=== PATIENT | female | born 1975 | race Caucasian/White ===

== ENCOUNTER 2017-06-18 16:47 | Observation (INO) ==
[2017-06-18] MEDS ORDERED: ATIVAN ONE ×2 (16:48)
[2017-06-18] MEDS ORDERED: STERILE WATER INJ. ONE ×2 (16:49)
[2017-06-18] MEDS ORDERED: GEODON ONE ×2 (16:49)
[2017-06-18] MEDS ORDERED: ATIVAN IM ONE ×2 (16:55→20:07)
[2017-06-18] MEDS ORDERED: GEODON IM ONE (16:55)
[2017-06-18] MEDS ORDERED: STERILE WATER INJ. INJ ONE (16:55)
[2017-06-18 19:00] LABS: BASO% 0.2 % (0.0-0.8); EOS# 0.06 X1000 (0.0-0.7); EOS% 0.3 % (0.0-10.0); HEMATOCRIT 43.2 % (37.0-47.0); HEMOGLOBIN 14.1 g/dL (12.0-16.0); IMM GRAN# 0.15 X1000 (0.0-0.04); IMM GRAN% 0.7 % (0.0-0.5); LYMPH# 2.06 X1000 (1.2-3.4); LYMPH% 9.5 % (20.5-51.1); MANUAL DIFF NEEDED? NO; MCH 29.1 PG (27-31); MCHC 32.6 g/dL (33-37); MCV 89.1 FL (81-99); MONO# 0.93 X1000 (0.11-0.59); MONO% 4.3 % (1.7-9.3); MPV 10.6 FL (7.4-10.4); PLT 397 X1000 (130-400); RBC 4.85 XMIL (4.2-5.4)
--- NOTE | 2017-06-18 19:22 | PROVIDER DOCUMENTATION ---
This chart was entered by Marcos Larson Scribe, acting as scribe for Jayson Hannon PA. HPI-Neurological Disorder - General Stated Complaint: FALL Time Seen by Provider: 06/18/17 16:47 Source: family Unable to obtain history due to:: altered (due to MR and post-ictal) Allergies/Adverse Reactions: Patient Allergies Allergy/AdvReac Type Severity Reaction Status Date / Time No Known Allergies Allergy Verified 06/18/17 17:10 Home Medications: Home Medication List Medication Instructions Recorded Confirmed Last Taken Type Citalopram [Celexa] 40 mg PO DAILY 10/09/12 06/18/17 05/05/15 20:00 History Levetiracetam [Keppra] 1,500 mg PO DAILY 10/09/12 06/18/17 05/05/15 07:00 History Lorazepam [Ativan] 1 mg PO TID 10/09/12 06/18/17 05/05/15 20:00 History Cyclobenzaprine [Flexeril] 10 mg PO TID PRN 05/16/14 06/18/17 05/05/15 20:00 History - History of Present Illness-Neuro Nature of Presenting Problem: patient is a 41 y/o F that presents to the ER from upstairs. patient was up visiting mom, when she had a seizure. patient's family member reports patient smacked her head on the floor. patient is disoriented and yelling. Severity: reports: moderate Onset/Duration: reports: abrupt, just prior to arrival Timing: reports: improving Context: reports: head injury, seizure activity Character of Altered Mental Status: reports: seizure activity Any recent trauma/injury?: reports: none Cognitive Baseline: other (MR) Associated Symptoms: reports: loss of consciousness, seizures. denies: fever/ chills, nausea, vomiting Similar Symptoms Previously?: Yes Recently seen or treated by another doctor?: No - Seizure First time to have a seizure?: No Witnessed seizure?: Yes How many seizure episodes?: 1 Episode details: reports: unknown duration Episode Frequency: chronic episodes Status Epilepticus: Yes Preceding symptoms/context:: active Character of Seizure: reports: lost consciousness, generalized shaking all over Post-ictal Symptoms: reports: confusion, speech difficulty Seizure related injury: head Review of Systems - Adult - REVIEW OF SYSTEMS - ADULT ROS:: ROS per family Constitutional: denies: chills, fever Eyes: reports: no symptoms reported Ears, Nose, Mouth & Throat: denies: epistaxis, loose teeth, mouth/dental pain Cardiovascular: denies: chest pain, palpitations Respiratory: denies: hemoptysis, shortness of breath Gastrointestinal: reports: no symptoms reported Genitourinary: reports: no symptoms reported Musculoskeletal: reports: no symptoms reported Integumentary: reports: no symptoms reported Neurological: reports: seizure. denies: dizziness/vertigo Psychiatric: reports: no symptoms reported Endocrine: reports: no symptoms reported Hematologic/Lymphatic: reports: no symptoms reported Allergic/Immunologic: reports: no symptoms reported All Other Systems: Reviewed and Negative Past History - Adult - PAST MEDICAL HISTORY-ADULT Review of Records: reports: Old Records Reviewed, Nursing Assessment Review, Medications Reviewed Neurological: reports: Seizures/Epilepsy Psychiatric: reports: anxiety - PRIOR SURGERIES/PROCEDURES Surgical/Procedure History: reports: none - IMMUNIZATION STATUS Childhood Immunizations: See Nurse Assessment Flu Vaccine: See Nurse Assessment - FAMILY HISTORY Family History: reviewed, not pertinent - SOCIAL HISTORY Smoking: cigarettes, less than 1 pack/day Living Situation: family Physical Exam- Neurological - Physical Exam-Neuro Initial Vital Signs Reviewed: Yes General Appearance: moderate distress, anxious Eye Exam: bilateral eye: normal inspection, PERRL HENMT: moist mucous membranes, normal ENT inspection Head Injury: negative: contusions, ecchymosis, lacerations Neck: full range of motion, normal inspection Respiratory: lungs clear, normal breath sounds, no respiratory distress, no accessory muscle use Cardiovascular: no gallop, no murmur, tachycardia Abdominal Exam: normal bowel sounds, non tender, soft Extremity: normal range of motion, normal inspection Neurologic: negative: facial droop, focal weakness, motor weakness Integumentary: normal color, warm/dry Psych/Mental Status: disoriented x 3 (calling out for momma), anxious Progress - PLAN OF CARE/RESULTS Progress/Plan/Lab Results: Vital Signs - 8 hr 06/18/17 17:19 Pulse Rate 112 H Respiratory Rate 20 Blood Pressure 148/90 O2 Sat by Pulse Oximetry 98 Laboratory Results - last 24 hr 06/18/17 17:02 WBC 21.60 H RBC 4.85 Hgb 14.1 Hct 43.2 MCV 89.1 MCH 29.1 MCHC 32.6 L RDW Std Deviation 13.9 Plt Count 397 MPV 10.6 H Immature Gran % (Auto) 0.7 H Neut % (Auto) 85.0 H Lymph % (Auto) 9.5 L [place] % (Auto) 4.3 Eos % (Auto) 0.3 Baso % (Auto) 0.2 Immature Gran # (Auto) 0.15 H Neut # (Auto) 18.36 H Lymph # (Auto) 2.06 [place] # (Auto) 0.93 H Eos # (Auto) 0.06 Baso # (Auto) 0.04 Orders Category Date Time Status HEAD/C-SPINE W/O CONTRAST [CT] Stat Exams 06/18/17 16:55 Ordered WRIST COMPLETE RIGHT [RAD] Stat Exams 06/18/17 19:12 Ordered CBC WITH ELECTRONIC DIFF [HEME] Stat Lab 06/18/17 17:02 Completed COMPREHENSIVE METABOLIC PANEL [CHEM] Stat Lab 06/18/17 19:03 Received ETOH [ALCOHOL BLOOD] Stat Lab 06/18/17 19:03 Received KEPPRA [MINOR] Stat Lab 06/18/17 19:[address] W/POSS RFLX CULT [URINALYSIS] Stat Lab 06/18/17 18:33 Uncollected URINE DRUG SCREEN Stat Lab 06/18/17 18:33 Uncollected Lorazepam [Ativan] Med 06/18/17 16:55 Discontinued 1 mg IM NOW ONE Lorazepam [Ativan] Med 06/18/17 16:48 Discontinued 2 mg .ROUTE .STK-MED ONE Water, Sterile Inj [Sterile Water Inj] Med 06/18/17 16:55 Discontinued 1.2 ml INJ NOW ONE Ziprasidone [Geodon] Med 06/18/17 16:55 Discontinued 20 mg IM NOW ONE Pt is unable to stay still for CT. Will discuss c hospitalist service for obs for neuro checks throughout the night. Laceration is very small and does not require any repair. Result Diagrams: 06/18/17 17:02 - CONSULTS/PCP/HOSPITALIST Notification #1 *Consult/PCP/Hospitalist*: Dr. Mendez Time Discussed: 19:21 Consult Disposition: Admit Departure - Departure Date of Disposition Decision: 06/18/17 Time of Disposition Decision: 19:22 DIAGNOSIS: Seizures, Mental retardation Head injury Qualifiers: Encounter type: initial encounter Qualified Code(s): S09.90XA - Unspecified injury of head, initial encounter Disposition: ADMITTED INPATIENT 09 Certified Medical Emergency: Emergent Condition: Stable Referrals and Follow-Ups: Epifanio Francis MD [Primary Care Provider] - - Critical Care Note This patient required my direct & personal management of CC.: No Attestation - Physician/ KALA Attestation Patient care was provided by Advanced Practice Provider:: Yes Advanced Practice Provider:: Jayson Hannon Advanced Practice Provider documentation review:: The Mid-level provider documentation, treatment plan and medical decision making was reviewed by the physician who agrees with all treatment and medical decision making by the MLP. The physician spent face to face time with patient:: Yes Advanced Practice Provider documentation review:: The physician spent face to face time with this patient and agrees with all MLP documentation, treatment, and medical decision making by the MLP. See provider notes for further information. This chart was documented by the indicated scribe, (Marcos Larson, Kay) and accurately reflects the services I performed and decisions made by , Jayson Hannon PA, as attested by the provider's signature.
[2017-06-18 19:39] LABS: AGAP 19; ALBUMIN 4.4 g/dL (3.5-5.0); ALKALINE PHOSPHATASE 96 U/L (32-104); BUN 9 mg/dL (8-22); CALCIUM 9.1 mg/dL (8.8-10.2); CHLORIDE 98 mmol/L (98-107); COSMO 276; GOT 17 U/L (10-30); GPT 15 U/L (10-36); POTASSIUM 4.5 mmol/L (3.5-5.1); SODIUM 136 mmol/L (136-145); TCO2 19 mmol/L (25-35); TOTAL BILIRUBIN 0.59 mg/dL (0.20-1.00); TOTAL PROTEIN 7.7 g/dL (6.3-8.3)
[2017-06-18] MEDS ORDERED: ATIVAN IV ONE (19:46)
--- NOTE | 2017-06-18 20:04 | Diag Imaging Result Doc PS360 ---
WRIST COMPLETE RIGHT - 06/18/2017 INDICATION: fall with wrist injury TECHNIQUE: Three views COMPARISON: None FINDINGS: Positioning is suboptimal. In addition, there is tubing right over the area of interest. No definite fracture or dislocation. IMPRESSION: No definite acute disease. Electronically signed by Nathen Davidson 06/18/2017 8:01 PM
[2017-06-18] MEDS ORDERED: KEPPRA 750 MG in NS 100 ML IV ONE (20:39)
--- NOTE | 2017-06-18 21:21 | Diag Imaging Result Doc PS360 ---
HEAD/C-SPINE W/O CONTRAST - 06/18/2017 INDICATION: seizures TECHNIQUE: A CT dose reduction protocol was used. COMPARISON: 05/06/2015 FINDINGS: Head CT: There is a large left periorbital and supraorbital scalp soft tissue hematoma. No fractures. Orbital contents appear grossly normal. Sinuses are clear. 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 Alignment is anatomic. No fracture or subluxation. No central canal or neural foraminal stenosis. IMPRESSION: 1. Large left periorbital soft tissue hematoma but no intracranial injury. 2. Negative cervical spine. Electronically signed by Nathen Davidosn 06/18/2017 9:18 PM
[2017-06-18] MEDS ORDERED: NS 1,000 ML IV SCH (23:22)
[2017-06-18] MEDS ORDERED: ATIVAN IV PRN (23:22)
[2017-06-18] MEDS ORDERED: TYLENOL PO PRN (23:22)
[2017-06-18] MEDS ORDERED: ZOFRAN IV PRN (23:22)
--- NOTE | 2017-06-19 03:39 | HISTORY AND PHYSICAL ---
PATIENT OF: Epifanio Francis MD REASON FOR ADMISSION: Recurrent seizures today. 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 She reportedly normally gets about 1 seizure event every other month. The patient was sent down from the medical floor where she was visiting her mother who is a patient on admission after she had witnessed tonic-clonic seizure and falling face forward at the onset of the seizure and hit the frontal part of her head at the onset of the seizure. She was then sent to the ER where she became completely combative and agitated in the postictal phase, requiring her to get a total of 1 mg Ativan and Geodon. As a result of her fall , she sustained a massive hematoma of the left frontal area and a CT scan was ordered, but they were unable to get her to cooperate because she was very agitated despite sedation. When I saw her, the patient was still drowsy in the postictal phase, although she was beginning to arouse. I was unable to get any history from the patient. Her sister who is at bedside informed me that a few hours prior to presenting to the ER she had a tonic-clonic seizure and apparently has been under a lot of stress. She has not taken her antiepileptic medication today since she had the seizure and this 2nd seizure which occurred on our premises occurred about 6-7 hours later. Other than this, the family is not sure about her sleeping habits, but they do believe she has been very stressed due to the fact that mother has been a patient here. Compliance of her medications is yet to be determined. REVIEW OF SYSTEMS: No reported fever by her family. No unusual focal neurological issues. No cardiorespiratory complaints. No antecedent cardiorespiratory complaints per the family. No change in her home medications recently. Otherwise review of systems is very limited for obvious reasons. ALLERGIES: No known allergies. MEDICATIONS: She takes Celexa 40 mg daily, Flexeril 10 mg t.i.d., Keppra 1500 mg daily, and Ativan 1 mg t.i.d. FAMILY HISTORY: Notable for seizures in first-degree relatives. PAST SURGICAL HISTORY: None. SOCIAL HISTORY: Lives with her mother. Does not smoke, drink or use illicit drugs. LABORATORY WORK AND IMAGING: Her white count is 21,000, hemoglobin and hematocrit 14 and 43, platelets 397,000, with 85% neutrophils. Glucose is 188. Alcohol level normal. CT head and C- spine was reportedly negative for any intracranial process or neck fracture, but there is a large left periorbital hematoma. Wrist x-ray showed no definite fracture. PHYSICAL EXAMINATION: GENERAL: Morbidly obese middle-aged woman who is very somnolent from sedation. VITAL SIGNS: Blood pressure is 140/90, heart rate 112, respirations 20, she is afebrile, 98% on room air. HEENT: The patient has a large 4 x 5 cm hematoma in the supraorbital area of her left eye. It was difficult to evaluate her eye during eye exam because patient was resistant , but to the best of my ability, she has miotic pupils which were barely reactive. No nystagmus was noted. No eye deviation was noted. No scleral or conjunctival hemorrhage noticed. She is anicteric and not pale. ENT and oropharyngeal exam could not be evaluated because patient was not cooperative. No visual signs of cyanosis noted. NECK: Supple. No JVD visualized. No thyromegaly noted. CHEST: Clear to auscultation. Good air entry both lung gilbert. CARDIOVASCULAR: First and second heart sounds heard. No gallops, murmurs, rubs. Rhythm is regular. ABDOMEN: Protuberant soft, no tenderness visualized. No mass or organomegaly appreciated. Bowel sounds hyperactive. EXTREMITIES: No edema, clubbing or cyanosis. Pulses distally lower extremities are symmetrical and good volume. No clubbing or peripheral cyanosis. No edema. NEUROLOGICAL: Could not be thoroughly examined due to patient's current degree of sedation, although spontaneously she would move her arms and legs. I did not visualize any focal motor deficits. SKIN: Intact. No breakdown lesion or erythema except for findings noted above. MUSCULOSKELETAL: Grossly normal. ASSESSMENT: 1. Epilepsy with recurrent seizures, probably related to stress-induced with poor compliance with medication. For now I did initiate IV Keppra today and p.r.n. Ativan if needed. Observe patient overnight because of her degree of head trauma which may put patient at slight increased risk of recurrent seizures. Once patient is more alert and able to tolerate orally, we will resume her home medications in the a.m. Check magnesium level also. Neurologic checks will also be done. 2. Mental retardation. Continue supportive care. 3. Leukocytosis likely reactive secondary to seizure. 4. Left orbital hematoma. Supportive measures. Follow up. We will observe. If the patient is stable with no recurrent seizures, can be discharged in a.m. by day team. cc: MD Ondina Tejeda MD MTDD
[2017-06-19 06:51] LABS: MANUAL DIFF NEEDED? NO
[2017-06-19 06:59] LABS: BASO% 0.2 % (0.0-0.8); MPV 9.9 FL (7.4-10.4)
[2017-06-19 07:18] LABS: AGAP 15; ALBUMIN 3.5 g/dL (3.5-5.0); ALKALINE PHOSPHATASE 78 U/L (32-104); BUN 7 mg/dL (8-22); CALCIUM 8.3 mg/dL (8.8-10.2); CHLORIDE 104 mmol/L (98-107); COSMO 277; EOS# 0.13 X1000 (0.0-0.7); EOS% 0.8 % (0.0-10.0); GOT 14 U/L (10-30); GPT 9 U/L (10-36); HEMATOCRIT 39.8 % (37.0-47.0); HEMOGLOBIN 13.3 g/dL (12.0-16.0); IMM GRAN# 0.04 X1000 (0.0-0.04); IMM GRAN% 0.2 % (0.0-0.5); LYMPH# 1.75 X1000 (1.2-3.4); LYMPH% 10.7 % (20.5-51.1); MCH 29.6 PG (27-31); MCHC 33.4 g/dL (33-37); MCV 88.4 FL (81-99); MONO# 1.24 X1000 (0.11-0.59); MONO% 7.6 % (1.7-9.3); NEUT% 80.5 % (42.2-75.2); PLT 295 X1000 (130-400); POTASSIUM 3.9 mmol/L (3.5-5.1); SODIUM 139 mmol/L (136-145); TCO2 20 mmol/L (25-35); TOTAL BILIRUBIN 1.02 mg/dL (0.20-1.00); TOTAL PROTEIN 6.8 g/dL (6.3-8.3)
[2017-06-19 08:47] VITALS: BP 125/86
[2017-06-19] MEDS ORDERED: KEPPRA PO SCH (09:00)
[2017-06-19] MEDS ORDERED: ATIVAN PO SCH (09:00)
--- NOTE | 2017-06-19 13:14 | DISCHARGE SUMMARY ---
ADMISSION DATE: 06/18/2017 DISCHARGE DATE: HOSPITAL COURSE: The patient was admitted yesterday. She had a seizure while she was here and it seemed to be more partial complex seizure, but she did bump her head and had a little cut above her forehead. She has done real well last night and back to her normal state, and the family would like to take her home. She has underlying mental retardation and a history of epilepsy. DISCHARGE MEDICATIONS: 1. Keppra 1500 mg daily. 2. Ativan 1 mg t.i.d. cc: Raulito Miller MD
== END 2017-06-19 13:43 | disposition home or self-care (01) ==
LOC: ED 16:47 → 3N 16:47 → SUATTDRO 22:12
PROVIDERS: ATTEND Emergency Medicine